=== PATIENT | female | born 1975 | race Caucasian/White ===

== ENCOUNTER → 2016-12-04 | Outpatient (CLI) | payer OTHER ==
[~2016-12-04] MED LIST: LEVO100T7 PO
[2016-12-04 10:23] LABS: BLOOD UREA NITROGEN 13 mg/dl (7-18); BUN/CREATININE RATIO 15.6 (10-20); CALCIUM 8.7 mg/dl (8.5-10.1); CARBON DIOXIDE 27 mmol/L (21-32); CHLORIDE 108 mmol/L (98-107); CHOLESTEROL 223 mg/dl (0-200); CHOLESTEROL/HDL RATIO 4.6; CREATININE 0.85 mg/dl (0.60-1.20); GLUCOSE 88 mg/dl (70-99); HDL CHOLESTEROL 49 mg/dl; LDL CHOLESTEROL CALCULATED 155 mg/dl; POTASSIUM 4.2 mmol/L (3.5-5.1); SODIUM 141 mmol/L (136-145); TRIGLYCERIDES 95 mg/dl (0-150); VERY LOW DENSITY LIPOPROT CALC 19 mg/dl
== END | disposition home or self-care (01) ==
LOC: C.LAB 08:55
PROVIDERS: ATTEND Family Medicine
DX: Z13.6 Encounter for screening for cardiovascular disorders (principal); Z13.1 Encounter for screening for diabetes mellitus; Z51.81 Encounter for therapeutic drug level monitoring

== ENCOUNTER → 2017-07-03 | Outpatient (CLI) | payer OTHER ==
[2017-07-03 13:38] LABS: BASO % 0.2 %; BASO ABS # 0.02 K/uL (0-0.2); EOS % 2.2 %; EOS ABS # 0.22 K/uL (0-0.5); HEMATOCRIT 39.3 % (37-47); HEMOGLOBIN 13.1 g/dL (12.0-16.0); IG# 0.02 K/uL (0.00-0.02); LYMPH % 28.4 %; LYMPH ABS # 2.82 K/uL (1.2-3.4); MEAN CELL VOLUME 88.5 fL (80-100); MEAN CORPUSCULAR HEMOGLOBIN 29.5 pg (25-34); MEAN CORPUSCULAR HGB CONC 33.3 g/dl (32-36); MEAN PLATELET VOLUME 10.5 fL (7.4-10.4); MONO % 6.7 %; MONO ABS # 0.66 K/uL (0.11-0.59); NEUT % 62.3 %; NEUT ABS # 6.18 K/uL (1.4-6.5); PLATELET COUNT 291 K/uL (130-400); RED CELL DISTRIBUTION WIDTH CV 12.6 % (11.5-14.5); RED CELL DISTRIBUTION WIDTH SD 40.2 fL (36.4-46.3); WHITE BLOOD COUNT 9.92 K/uL (4.8-10.8)
[2017-07-03 14:10] LABS: ALBUMIN 3.3 gm/dl (3.4-5.0); ALT/SGPT 20 U/L (12-78); AST/SGOT 21 U/L (15-37); BLOOD UREA NITROGEN 12 mg/dl (7-18); CALCIUM 8.8 mg/dl (8.5-10.1); CARBON DIOXIDE 25 mmol/L (21-32); CREATININE 0.92 mg/dl (0.60-1.20); GLUCOSE 80 mg/dl (70-99); SODIUM 137 mmol/L (136-145)
[2017-07-03 14:22] LABS: ALKALINE PHOSPHATASE 98 U/L (45-117); TOTAL PROTEIN 7.3 gm/dl (6.4-8.2)
== END | disposition home or self-care (01) ==
LOC: C.LAB 11:57
PROVIDERS: ATTEND Family Medicine
DX: R42 Dizziness and giddiness (principal); R29.6 Repeated falls; R26.81 Unsteadiness on feet

== ENCOUNTER 2022-09-29 18:38 | Observation (INO) ==
--- NOTE | 2022-09-29 18:53 | ED Triage Note ---
Date of Service September 29, 2022 History of Present Illness This patient was briefly evaluated while in triage. An abbreviated physical exam was performed. This patient is a 47-year-old Female who presents to the ED for evaluation of shortness of breath and headaches. Hx of DVT at age 17. Arnold her dyspnea started and headaches over the past 2 weeks. No trauma or injury. Physical Exam GENERAL: 47 year old female. In no acute distress. SKIN: No lesions or rashes. HEART: Regular rate and rhythm. LUNGS: Clear to auscultation. NEURO: Alert and oriented. No deficits. MUSCULOSKELETAL: No deformities to inspection of the extremities. PSYCH: Patient is pleasant and answers all questions appropriately. Initial orders for labs and / or imaging were placed and patient was placed in the waiting area until a bed is available. Please see further documentation for the full ED course.
--- NOTE | 2022-09-29 19:15 | XRay Report ---
SINGLE VIEW CHEST CLINICAL HISTORY: Dyspnea FINDINGS: A PA chest radiograph is obtained. No prior studies are available for comparison at the tez e of dictation. The cardiomediastinal silhouette is unremarkable. The lungs and pleural spaces are cl ear. No pneumothorax is seen. The bony thorax is grossly intact. IMPRESSION: No active disease in the chest. ACT 112: Negative or not required by law. Electronically signed by: Bunny Rehman M.D. 09/29/2022 7:14 PM
[2022-09-29 20:22] LABS: Basophils # (auto) 0.04 K/uL (0-0.2); Basophils % (auto) 0.3 %; Eosinophils # (auto) 0.26 K/uL (0-0.50); Eosinophils % (auto) 2.1 %; Hematocrit (blood only) 39.8 % (37.0-47.0); Hemoglobin 13.6 g/dl (12.0-16.0); Immature Granulocytes # (auto) 0.08 K/uL (0.01-0.20); Immature Granulocytes % (auto) 0.6 %; Lymphocytes # (auto) 2.49 K/uL (1.2-3.4); Lymphocytes % (auto) 20.2 %; Mean Corpuscular Hemoglobin 29.6 pg (25.0-34.0); Mean Corpuscular Hgb Conc 34.2 g/dL (32.0-36.0); Mean Corpuscular Volume 86.5 fL (80.0-100.0); Mean Platelet Volume 10.1 fL (9.4-12.4); Monocytes % (auto) 8.1 %; Neutrophils # (auto) 8.46 K/uL (1.40-6.50); Neutrophils % (auto) 68.7 %; Platelet Count 109 K/uL (130-400); RDW Coefficient of Variation 12.6 % (11.5-14.5); RDW Standard Deviation 39.8 fL (36.4-46.3); White Blood Count 12.33 K/ul (4.8-10.8)
[2022-09-29 20:28] LABS: Pregnancy Test, Serum Negative (Negative)
[2022-09-29 20:33] LABS: Bilirubin,Total 0.3 mg/dl (0.2-1.0); Calcium 9.3 mg/dl (8.6-10.3)
[2022-09-29 20:39] LABS: Albumin Globulin Ratio 1.3 (0.9-2); BUN Creatinine Ratio 17.2 (10-20); Creatinine Clr Calc Pharmacy 112.4 ml/min; Est GFR (African American) 83.6 ml/min; Est GFR (Non-African American) 72.2 ml/min; Globulin 3.2 gm/dl (2.5-4.0); Total Protein 7.2 gm/dl (6.0-8.3)
[2022-09-29 20:41] LABS: Troponin I High Sensitivity 4.1 pg/ml (0-14)
[2022-09-29 20:50] LABS: Thyroid Stimulating Hormone 6.44 uIu/ml (0.300-4.500)
[2022-09-29 20:53] LABS: INR 0.9 (0.9-1.1); Partial Thromboplastin Time 27.5 Seconds (21.0-31.0); Prothrombin Time 10.3 Seconds (9.0-12.0)
--- NOTE | 2022-09-29 20:55 | Emergency Department Note ---
History of Present Illness General Chief complaint: Shortness of Breath/Dyspnea Stated complaint: REF BY DOC,SOB,HEADACHE Time Seen by Provider: 09/29/22 20:36 Source: patient, RN notes reviewed and old records reviewed Mode of arrival: ambulatory Limitations: no limitations History of Present Illness This patient is a 47-year-old female who was sent over from her primary care doctor's office for evaluation for possible PE. She has had some shortness of breath since Thursday is mostly dyspnea on exertion. No chest pain no fever no cough no fall or trauma. She does have a remote history of a DVT in her leg about 30 years ago she is on no blood thinners it sounds like it was likely provoked as she said it was deemed to be related to hormones in . She does not have any known clotting disorder. No recent travel no lower extremity pain or swelling. No abdominal pain no nausea vomiting or diarrhea. No blood or melena in her stool. She said that the PA thought she had some wheezes in her right chest. Home Medications Medication Instructions Recorded Confirmed Type levothyroxine 150 mcg tablet 150 mcg PO DAILY 11/02/19 09/29/22 History (Synthroid) sertraline 50 mg tablet 50 mg PO DAILY 09/29/22 09/29/22 History Allergies Allergy/AdvReac Type Severity Reaction Status Date / Time aspirin Allergy Mild Unverified 04/06/09 02:36 Penicillins Allergy Mild Unverified 04/06/09 02:36 Past Med/Surg History Surgical History No pertinent past surgical history Social History Smoking Status: Never smoker Preferred Language: Malay Feels Safe at Home: Yes Immunizations: Past medical historyremote history of PEs she is on Synthroid for hypothyroidism no recent medication change. She has a history of anxiety. Denies any suicidal ideations. Denies cardiac history. Social history does not smoke or drink or use drugs. She is employed in information assurance specialist Review of Systems A total of 10 systems reviewed and were otherwise negative Physical Exam Vital Signs Vital Signs - 24 hr 09/29/22 18:50 09/29/22 20:56 09/29/22 20:56 Temperature 36.8 C Temperature Source Temporal Artery Scan Pulse Rate 100 H 81 Pulse Rate from SpO2 Sensor Pulse Rhythm Regular Respiratory Rate 18 16 Respiratory Effort / Characteristics Non-Labored Respiratory Depth Normal Blood Pressure 159/88 H Blood Pressure Mean 111 Pulse Oximetry 96 95 95 Oxygen Delivery Method Room Air Room Air Room Air Sepsis Recent Fever Within 48 Hours No Sepsis New/Unexplained Change in Mental Status No Sepsis Action Taken by Nursing No Action Required 09/29/22 20:53 09/29/22 20:52 09/29/22 21:00 Temperature Temperature Source Pulse Rate 90 87 78 Pulse Rate from SpO2 Sensor 90 81 Pulse Rhythm Respiratory Rate 19 14 Respiratory Effort / Characteristics Respiratory Depth Blood Pressure 141/93 H Blood Pressure Mean 109 Pulse Oximetry 96 96 Oxygen Delivery Method Room Air Room Air Sepsis Recent Fever Within 48 Hours Sepsis New/Unexplained Change in Mental Status Sepsis Action Taken by Nursing 09/29/22 22:00 09/29/22 22:24 09/29/22 22:30 Temperature Temperature Source Pulse Rate 82 100 H 85 Pulse Rate from SpO2 Sensor 82 85 Pulse Rhythm Respiratory Rate 13 17 Respiratory Effort / Characteristics Respiratory Depth Blood Pressure 130/88 Blood Pressure Mean 102 Pulse Oximetry 94 93 93 Oxygen Delivery Method Room Air Room Air Room Air Sepsis Recent Fever Within 48 Hours Sepsis New/Unexplained Change in Mental Status Sepsis Action Taken by Nursing 09/29/22 23:00 Temperature Temperature Source Pulse Rate 87 Pulse Rate from SpO2 Sensor 87 Pulse Rhythm Respiratory Rate 15 Respiratory Effort / Characteristics Respiratory Depth Blood Pressure 119/87 Blood Pressure Mean 97 Pulse Oximetry 95 Oxygen Delivery Method Room Air Sepsis Recent Fever Within 48 Hours Sepsis New/Unexplained Change in Mental Status Sepsis Action Taken by Nursing General: Well developed well nourished middle-age female who appears in no acute distress, breathing comfortably on room air. Normal speech HEENT: Normal cephalic atraumatic. Pupils are equal round and reactive to light. Extraocular movements are intact. Oropharynx is pink with moist mucous membranes. No swelling of the mouth lips or tongue. Neck: Supple with a midline trachea. No meningeal signs or stiffness, no JVD or bruits. No Stridor. Chest: Clear to auscultation bilaterally with exception of some scattered wheezes in the right base. No increased work of breathing. Heart: Regular rate and rhythm without murmurs or gallops. Abdomen: Soft nontender, nondistended without rebound guarding or rigidity. Extremities: No cyanosis clubbing or edema. No calf tenderness or assymetry Spine/Back. Non tender to palpation. No CVA tenderness Skin: Good turgor without rashes. Neurologic exam: Cranial nerves two through 12 are intact. Motor and sensation are intact and symmetrical throughout. Course Administered Medications Discontinued Medications Ioversol (Ioversol 350 Mg 125ml Prefilled Syringe) 118 ml IV ONCE ONE Stop: 09/29/22 22:20 Last Admin: 09/29/22 22:19 Dose: 118 ml Documented By: MAMIE Medical Decision Making Differential Diagnosis Pneumonia, reactive airway disease, PE, pneumothorax, acute coronary syndrome, arrhythmia Medical Records Attestation: I reviewed the patient's medical records. Home Medications Current Medication List: was personally reviewed by me Laboratory Data Attestation: I reviewed the patient's lab results. 09/29/22 20:00 09/29/22 20:00 Lab Results 09/29/22 09/29/22 09/29/22 Range/Units 20:00 20:00 20:00 WBC 12.33 H (4.8-10.8) K/ul RBC 4.60 (4.20-5.40) M/uL Hgb 13.6 (12.0-16.0) g/dl Hct 39.8 (37.0-47.0) % MCV 86.5 (80.0-100.0) fL MCH 29.6 (25.0-34.0) pg MCHC 34.2 (32.0-36.0) g/dL RDW Std Deviation 39.8 (36.4-46.3) fL RDW Coeff of Mayela 12.6 (11.5-14.5) % Plt Count 109 L (130-400) K/uL MPV 10.1 (9.4-12.4) fL Immature Gran % (Auto) 0.6 % Neut % (Auto) 68.7 % Lymph % (Auto) 20.2 % Mayes % (Auto) 8.1 % Eos % (Auto) 2.1 % Baso % (Auto) 0.3 % Neut # (Auto) 8.46 H (1.40-6.50) K/uL Lymph # (Auto) 2.49 (1.2-3.4) K/uL Mayes # (Auto) 1.00 H (0.11-0.59) K/uL Eos # (Auto) 0.26 (0-0.50) K/uL Baso # (Auto) 0.04 (0-0.2) K/uL Immature Gran # (Auto) 0.08 (0.01-0.20) K/uL PT 10.3 (9.0-12.0) Seconds INR 0.9 (0.9-1.1) APTT 27.5 (21.0-31.0) Seconds PTT Ratio 1.0 D-Dimer 5840 H* (0-500) ug/L FEU Sodium 137 (136-145) mmol/L Potassium 4.0 (3.5-5.1) mmol/L Chloride 105 (98-107) mmol/L Carbon Dioxide 23 (21-32) mmol/L Anion Gap 9 (3-11) BUN 16 (6-23) mg/dl Creatinine 0.93 (0.6-1.2) mg/dl Est Cr Clr Drug Dosing 112.4 ml/min Est GFR ( Amer) 83.6 ml/min Est GFR (Non-Af Amer) 72.2 ml/min BUN/Creatinine Ratio 17.2 (10-20) Glucose 93 (70-99(Fasting)) mg/dl Calcium 9.3 (8.6-10.3) mg/dl Total Bilirubin 0.3 (0.2-1.0) mg/dl AST 17 (13-39) U/L ALT 12 (7-52) U/L Alkaline Phosphatase 85 (34-104) U/L Troponin I High Sens 4.1 (0-14) pg/ml Total Protein 7.2 (6.0-8.3) gm/dl Albumin 4.0 (3.4-5.0) gm/dl Globulin 3.2 (2.5-4.0) gm/dl Albumin/Globulin Ratio 1.3 (0.9-2) TSH (0.300-4.500) uIu/ml Free T4 (0.61-1.60) ng/dl HCG, Qual (Negative) SARS-CoV-2, RNA, NAAT (NEGATIVE) 09/29/22 09/29/22 09/29/22 Range/Units 20:00 20:00 20:54 WBC (4.8-10.8) K/ul RBC (4.20-5.40) M/uL Hgb (12.0-16.0) g/dl Hct (37.0-47.0) % MCV (80.0-100.0) fL MCH (25.0-34.0) pg MCHC (32.0-36.0) g/dL RDW Std Deviation (36.4-46.3) fL RDW Coeff of Mayela (11.5-14.5) % Plt Count (130-400) K/uL MPV (9.4-12.4) fL Immature Gran % (Auto) % Neut % (Auto) % Lymph % (Auto) % Mayes % (Auto) % Eos % (Auto) % Baso % (Auto) % Neut # (Auto) (1.40-6.50) K/uL Lymph # (Auto) (1.2-3.4) K/uL Mayes # (Auto) (0.11-0.59) K/uL Eos # (Auto) (0-0.50) K/uL Baso # (Auto) (0-0.2) K/uL Immature Gran # (Auto) (0.01-0.20) K/uL PT (9.0-12.0) Seconds INR (0.9-1.1) APTT (21.0-31.0) Seconds PTT Ratio D-Dimer (0-500) ug/L FEU Sodium (136-145) mmol/L Potassium (3.5-5.1) mmol/L Chloride (98-107) mmol/L Carbon Dioxide (21-32) mmol/L Anion Gap (3-11) BUN (6-23) mg/dl Creatinine (0.6-1.2) mg/dl Est Cr Clr Drug Dosing ml/min Est GFR ( Amer) ml/min Est GFR (Non-Af Amer) ml/min BUN/Creatinine Ratio (10-20) Glucose (70-99(Fasting)) mg/dl Calcium (8.6-10.3) mg/dl Total Bilirubin (0.2-1.0) mg/dl AST (13-39) U/L ALT (7-52) U/L Alkaline Phosphatase (34-104) U/L Troponin I High Sens (0-14) pg/ml Total Protein (6.0-8.3) gm/dl Albumin (3.4-5.0) gm/dl Globulin (2.5-4.0) gm/dl Albumin/Globulin Ratio (0.9-2) TSH 6.440 H (0.300-4.500) uIu/ml Free T4 0.85 (0.61-1.60) ng/dl HCG, Qual Negative (Negative) SARS-CoV-2, RNA, NAAT NEGATIVE (NEGATIVE) Imaging Data Attestation: I personally reviewed and interpreted this imaging study as follows: My Impression: Chest x-rayno acute infiltrate, failure, pneumothorax seen CT angio/PEthere are some filling defects in the lower lobes bilaterally. No central clot seen Radiologist's Impression: Chest X-Ray 09/29/22 18:54 SINGLE VIEW CHEST CLINICAL HISTORY: Dyspnea FINDINGS: A PA chest radiograph is obtained. No prior studies are available for comparison at the time of dictation. The cardiomediastinal silhouette is unremarkable. The lungs and pleural spaces are clear. No pneumothorax is seen. The bony thorax is grossly intact. IMPRESSION: No active disease in the chest. ACT 112: Negative or not required by law. Electronically signed by: Bunny Rehman M.D. 09/29/2022 7:14 PM Chest CTA 09/29/22 20:48 CR Exam(s): CTA CHEST IV Amt: 118 ml optiray 350 EXAM: CT Angiography Chest With Intravenous Contrast CLINICAL HISTORY: Reason for exam: PE. TECHNIQUE: Axial computed tomographic angiography images of the chest with intravenous contrast. Automated exposure control was utilized for the study. A dose lowering technique was utilized adhering to the principles of ALARA. MIP reconstructed images were created and reviewed. COMPARISON: No relevant prior studies available. FINDINGS: Pulmonary arteries: Positive for acute pulmonary emboli in the LEFT lower lobe segmental and subsegmental branches, as well as RIGHT lower lobe subsegmental branches. Aorta: No acute findings. No thoracic aortic aneurysm. Lungs: Unremarkable. No mass. No consolidation. Pleural space: Unremarkable. No significant effusion. No pneumothorax. Heart: Unremarkable. No significant pericardial effusion. No CT evidence of RIGHT heart strain. Bones/joints: No acute fracture. No dislocation. Soft tissues: Unremarkable. Lymph nodes: Unremarkable. No enlarged lymph nodes. IMPRESSION: Positive for bilateral acute pulmonary emboli , as described. Communications: Call Doctor Other Electronically signed by: Javier Ricardo MD 09/29/22 22:45 PM ECG Data Attestation: I personally reviewed and interpreted this ECG as follows: Indication: + chest pain Rate (beats per minute): 103 Rhythm: + sinus tachycardia ECG Intervals/blocks: + Normal QRS, + Normal QT and + Normal VA ECG [place]: + Normal ECG ST segments: + Normal ST segments ECG Findings: no PACs or no PVCs Comparison ECG Date: from (09/29/22) Change: no significant change MDM Narrative This patient comes in as described above. She was placed in room A11. she is here for shortness of breath for the last several days its been mostly had dyspnea on exertion she does have some scattered wheezes in the right base she is afebrile and not hypoxemic she appears well. EKG does not suggest acute coronary syndrome arrhythmia. Chest x-ray was unremarkable. She has no significant electrolyte or metabolic abnormality. I did discuss the risk and benefits of doing a CT angio with IV contrast for PE and other pathology she does freely consent and this was obtained. The radiologist called me and told me she has bilateral pulmonary emboli. The patient has remained stable. Her D- dimer was significantly elevated at greater than 5000. I do think she needs to be anticoagulated and admitted/observed for further inpatient treatment and evaluation. I have consulted Dr. Mcneal to discuss the case and also discuss anticoagulation. He says that he will see the patient and determine which 1 he wants her on as an inpatient. Continuous cardiac monitoring: Orders placed in EMR for continuous cardiac monitoring: Upon my evaluation patient noted to be in normal sinus rhythm rate 85 Impression & Plan Bilateral pulmonary embolism, Shortness of breath, History of deep vein thrombosis, Wheezes, Lab test negative for COVID-19 virus Discharge Plan Visit Data Chief Complaint: Shortness of Breath/Dyspnea Stated Complaint: REF BY DOC,SOB,HEADACHE ED Provider: Morgan Bustamante Discharge Problem: Bilateral pulmonary embolism, Shortness of breath, History of deep vein thrombosis, Wheezes, Lab test negative for COVID-19 virus Forms Stand Alone Forms: My [facility] Prescriptions Prescriptions: No Action levothyroxine [Synthroid] 150 mcg tablet 150 mcg PO DAILY sertraline 50 mg tablet 50 mg PO DAILY Referrals Referrals: PCP,NO [Primary Care Provider] -
[2022-09-29 20:59] LABS: D Dimer 5840 ug/L FEU (0-500)
[2022-09-29 21:40] LABS: T4 Free Thyroxine 0.85 ng/dl (0.61-1.60)
[2022-09-29] MEDS ORDERED: IOVERSOL 350 MG 125mL Prefilled Syringe IV ONE (22:19)
--- NOTE | 2022-09-29 22:46 | CT Scan Report ---
Exam(s): CTA CHEST IV Amt: 118 ml optiray 350 EXAM: CT Angiography Chest With Intravenous Contrast CLINICAL HISTORY: Reason for exam: PE. TECHNIQUE: Axial computed tomographic angiography images of the chest with intravenous contrast. Automated exposure control was utilized for the study. A dose lowering technique was utilized adhering to the principles of ALARA. MIP reconstructed images were created and reviewed. COMPARISON: No relevant prior studies available. FINDINGS: Pulmonary arteries: Positive for acute pulmonary emboli in the LEFT lower lobe segmental and subsegmental branches, as well as RIGHT lower lobe subsegmental branches. Aorta: No acute findings. No thoracic aortic aneurysm. Lungs: Unremarkable. No mass. No consolidation. Pleural space: Unremarkable. No significant effusion. No pneumothorax. Heart: Unremarkable. No significant pericardial effusion. No CT evidence of RIGHT heart strain. Bones/joints: No acute fracture. No dislocation. Soft tissues: Unremarkable. Lymph nodes: Unremarkable. No enlarged lymph nodes. IMPRESSION: Positive for bilateral acute pulmonary emboli , as described. Communications: Call Doctor Other Electronically signed by: Javier Ricardo MD 09/29/22 22:45 PM
[2022-09-29] MEDS ORDERED: SODIUM CHLORIDE 0.9% 1000ML 1,000 ML IV ONE (23:54)
--- NOTE | 2022-09-30 00:45 | History & Physical Report ---
Date of Service September 30, 2022 Assessment & Plan (1) Bilateral pulmonary embolism: Plan: Unprovoked event Past history DVT attributed to OCP pill status post Coumadin Rule out recurrent LE clot as source Possible hypercoagulable state hypothyroidism, TSH slightly elevated mood disorder, stable Medical telemetry Hypercoagulable work-up before weight-based Lovenox Defer discussion regarding home anticoagulation agent between patient and AM provider. Patient expressed interest in Eliquis. LE venous Dopplers rule out DVT Outpatient Hematology consult Re: Unprovoked PE, past history DVT DVT prophylaxis. Lovenox Full code Text document was generated using [employer] voice recognition software. It may contain grammatical or spelling errors. Kindly contact undersigned for clarification of any documentation item in question. History of Present Illness Chief Complaint: Shortness of breath Primary Care Provider: Myron Green (Patient needs new PCP at the practice after Dr. Maxx naidu.) History obtained from patient and records. Medical history significant for past history DVT status post Coumadin, hypothyroidism, mood disorder. Patient remembers developing a lower extremity on her leg about 30 years ago attributed to oral contraceptive pill intake. Completed Coumadin course outpatient. Few days history of shortness of breath mostly on exertion without chest pain. No recent periods of immobilization/prolonged travel. No chest pain. No unusual weight loss. Intermittent dull headache symptoms for about 2 weeks. Patient directed to ER after being seen at PCPs office yesterday. Medical History as above Surgical History : None Family History : Superficial blood clots Personal/Social history : Non-smoker, occasional EtOH intake, IT work Allergies Allergy/AdvReac Type Severity Reaction Status Date / Time aspirin Allergy Mild Unverified 04/06/09 02:36 Penicillins Allergy Mild Unverified 04/06/09 02:36 Home Medications Medication Instructions Recorded Confirmed Type levothyroxine 150 mcg tablet 150 mcg PO DAILY 11/02/19 09/29/22 History (Synthroid) sertraline 50 mg tablet 50 mg PO DAILY 09/29/22 09/29/22 History Past Med/Surg History Surgical History No pertinent past surgical history Social History Smoking Status: Never smoker Hx Alcohol Use: Yes Hx Substance Use: No Preferred Language: Bruneian Communication Ability: Effective Rehabilitation Services Coordinator Required: No Beliefs That Will Affect Care: None Current Living Situation: Alone Other Information That Helps Us Care for You: No Feels Safe at Home: Yes Safety Concerns: Feels Safe At This Time Assistive Devices: Glasses Review of Systems Review of Systems: As per HPI, all other systems reviewed and negative Physical Exam 2 Physical Exam: GENERAL: Comfortable, pleasant, morbidly obese, no respiratory distress SKIN: Normal color, warm HEENT: Halls palpebral conjunctivae, no ptosis, moist buccal mucosa NECK : Supple, short neck, no tenderness CHEST : CTA, no tenderness HEART : RRR, no obvious murmurs ABDOMEN: Some distention, nontender EXTREMITIES : Bilateral LE swelling (R > L), no LE tenderness, no other conspicuous deformities noted NEUROLOGIC : Coherent, no facial asymmetry, no other gross focality Results & Data Results & Data Vital Signs (Past 12 Hours) Vital Signs Temp Pulse Resp BP Pulse Ox O2 Del Method 09/30/22 00:06 125/95 09/29/22 23:30 79 13 94 Room Air 09/29/22 23:00 87 15 119/87 95 Room Air 09/29/22 22:30 85 17 93 Room Air 09/29/22 22:24 100 H 130/88 93 Room Air 09/29/22 22:00 82 13 94 Room Air 09/29/22 21:00 78 14 96 Room Air 09/29/22 20:52 87 09/29/22 20:53 90 19 141/93 H 96 Room Air 09/29/22 20:56 81 16 95 Room Air 09/29/22 20:56 95 Room Air 09/29/22 18:50 36.8 C 100 H 18 159/88 H 96 Room Air Laboratory Results Laboratory Results WBC 12.33 K/ul (4.8-10.8) H 09/29/22 20:00 RBC 4.60 M/uL (4.20-5.40) 09/29/22 20:00 Hgb 13.6 g/dl (12.0-16.0) 09/29/22 20:00 Hct 39.8 % (37.0-47.0) 09/29/22 20:00 MCV 86.5 fL (80.0-100.0) 09/29/22 20:00 MCH 29.6 pg (25.0-34.0) 09/29/22 20:00 MCHC 34.2 g/dL (32.0-36.0) 09/29/22 20:00 RDW Std Deviation 39.8 fL (36.4-46.3) 09/29/22 20:00 RDW Coeff of Mayela 12.6 % (11.5-14.5) 09/29/22 20:00 Plt Count 109 K/uL (130-400) L 09/29/22 20:00 MPV 10.1 fL (9.4-12.4) 09/29/22 20:00 Immature Gran % (Auto) 0.6 % 09/29/22 20:00 Neut % (Auto) 68.7 % 09/29/22 20:00 Lymph % (Auto) 20.2 % 09/29/22 20:00 [place] % (Auto) 8.1 % 09/29/22 20:00 Eos % (Auto) 2.1 % 09/29/22 20:00 Baso % (Auto) 0.3 % 09/29/22 20:00 Neut # (Auto) 8.46 K/uL (1.40-6.50) H 09/29/22 20:00 Lymph # (Auto) 2.49 K/uL (1.2-3.4) 09/29/22 20:00 [place] # (Auto) 1.00 K/uL (0.11-0.59) H 09/29/22 20:00 Eos # (Auto) 0.26 K/uL (0-0.50) 09/29/22 20:00 Baso # (Auto) 0.04 K/uL (0-0.2) 09/29/22 20:00 Immature Gran # (Auto) 0.08 K/uL (0.01-0.20) 09/29/22 20:00 PT 10.3 Seconds (9.0-12.0) 09/29/22 20:00 INR 0.9 (0.9-1.1) 09/29/22 20:00 APTT 27.5 Seconds (21.0-31.0) 09/29/22 20:00 PTT Ratio 1.0 09/29/22 20:00 D-Dimer 5840 ug/L FEU (0-500) H* 09/29/22 20:00 Sodium 137 mmol/L (136-145) 09/29/22 20:00 Potassium 4.0 mmol/L (3.5-5.1) 09/29/22 20:00 Chloride 105 mmol/L (98-107) 09/29/22 20:00 Carbon Dioxide 23 mmol/L (21-32) 09/29/22 20:00 Anion Gap 9 (3-11) 09/29/22 20:00 BUN 16 mg/dl (6-23) 09/29/22 20:00 Creatinine 0.93 mg/dl (0.6-1.2) 09/29/22 20:00 Est Cr Clr Drug Dosing 112.4 ml/min 09/29/22 20:00 Est GFR ( Amer) 83.6 ml/min 09/29/22 20:00 Est GFR (Non-Af Amer) 72.2 ml/min 09/29/22 20:00 BUN/Creatinine Ratio 17.2 (10-20) 09/29/22 20:00 Glucose 93 mg/dl (70-99(Fasting)) 09/29/22 20:00 Calcium 9.3 mg/dl (8.6-10.3) 09/29/22 20:00 Total Bilirubin 0.3 mg/dl (0.2-1.0) 09/29/22 20:00 AST 17 U/L (13-39) 09/29/22 20:00 ALT 12 U/L (7-52) 09/29/22 20:00 Alkaline Phosphatase 85 U/L (34-104) 09/29/22 20:00 Troponin I High Sens 4.1 pg/ml (0-14) 09/29/22 20:00 Total Protein 7.2 gm/dl (6.0-8.3) 09/29/22 20:00 Albumin 4.0 gm/dl (3.4-5.0) 09/29/22 20:00 Globulin 3.2 gm/dl (2.5-4.0) 09/29/22 20:00 Albumin/Globulin Ratio 1.3 (0.9-2) 09/29/22 20:00 TSH 6.440 uIu/ml (0.300-4.500) H 09/29/22 20:00 Free T4 0.85 ng/dl (0.61-1.60) 09/29/22 20:00 HCG, Qual Negative (Negative) 09/29/22 20:00 SARS-CoV-2, RNA, NAAT NEGATIVE (NEGATIVE) 09/29/22 20:54 Impressions Chest X-Ray 09/29/22 18:54 SINGLE VIEW CHEST CLINICAL HISTORY: Dyspnea FINDINGS: A PA chest radiograph is obtained. No prior studies are available for comparison at the time of dictation. The cardiomediastinal silhouette is unremarkable. The lungs and pleural spaces are clear. No pneumothorax is seen. The bony thorax is grossly intact. IMPRESSION: No active disease in the chest. ACT 112: Negative or not required by law. Electronically signed by: Bunny Rehman M.D. 09/29/2022 7:14 PM Chest CTA 09/29/22 20:48 CR Exam(s): CTA CHEST IV Amt: 118 ml optiray 350 EXAM: CT Angiography Chest With Intravenous Contrast CLINICAL HISTORY: Reason for exam: PE. TECHNIQUE: Axial computed tomographic angiography images of the chest with intravenous contrast. Automated exposure control was utilized for the study. A dose lowering technique was utilized adhering to the principles of ALARA. MIP reconstructed images were created and reviewed. COMPARISON: No relevant prior studies available. FINDINGS: Pulmonary arteries: Positive for acute pulmonary emboli in the LEFT lower lobe segmental and subsegmental branches, as well as RIGHT lower lobe subsegmental branches. Aorta: No acute findings. No thoracic aortic aneurysm. Lungs: Unremarkable. No mass. No consolidation. Pleural space: Unremarkable. No significant effusion. No pneumothorax. Heart: Unremarkable. No significant pericardial effusion. No CT evidence of RIGHT heart strain. Bones/joints: No acute fracture. No dislocation. Soft tissues: Unremarkable. Lymph nodes: Unremarkable. No enlarged lymph nodes. IMPRESSION: Positive for bilateral acute pulmonary emboli , as described. Communications: Call Doctor Other Electronically signed by: Javier Ricardo MD 09/29/22 22:45 PM Diagnostic Findings EKG as per my interpretation : Rate 105, sinus tachycardia, LAD, LAFB, T wave abnormalities inferior leads
[2022-09-30] MEDS ORDERED: PROMETHAZINE HCL 12.5 MG in SODIUM CHLORIDE 0.9% 50 ML IV PRN (01:31)
[2022-09-30] MEDS ORDERED: LORazepam 0.5 MG TAB PO PRN (01:31)
[2022-09-30] MEDS ORDERED: oxyCODONE HCL IR 5 MG TAB (IMMEDIATE RELEASE) PO PRN (01:31)
--- NOTE | 2022-09-30 02:16 | CT Scan Report ---
Exam(s): CT HEAD Without Contrast EXAM: CT Head Without Intravenous Contrast CLINICAL HISTORY: Reason for exam: wolfe. TECHNIQUE: Axial computed tomography images of the head/brain without intravenous contrast. Automated exposure control was utilized for the study. A dose lowering technique was utilized adhering to the principles of ALARA. COMPARISON: No relevant prior studies available. FINDINGS: Brain: Unremarkable. No hemorrhage. No significant white matter disease. No edema. Ventricles: Unremarkable. No ventriculomegaly. Bones/joints: Unremarkable. No acute fracture. Soft tissues: Unremarkable. Sinuses: Unremarkable as visualized. No acute sinusitis. Mastoid air cells: Unremarkable as visualized. No mastoid effusion. IMPRESSION: Normal head/brain CT. Electronically signed by: Mason Kenny M.D. 09/30/22 02:15 AM
[2022-09-30 03:21] LABS: BUN Creatinine Ratio 18.1 (10-20); Calcium 8.7 mg/dl (8.6-10.3); Est GFR (Non-African American) 82.8 ml/min; Potassium 3.5 mmol/L (3.5-5.1)
[2022-09-30 03:35] LABS: Basophils # (auto) 0.04 K/uL (0-0.2); Basophils % (auto) 0.4 %; Eosinophils # (auto) 0.28 K/uL (0-0.50); Eosinophils % (auto) 2.5 %; Hemoglobin 12.3 g/dl (12.0-16.0); Immature Granulocytes # (auto) 0.08 K/uL (0.01-0.20); Immature Granulocytes % (auto) 0.7 %; Lymphocytes # (auto) 2.69 K/uL (1.2-3.4); Lymphocytes % (auto) 24.3 %; Mean Corpuscular Hemoglobin 29.7 pg (25.0-34.0); Mean Corpuscular Hgb Conc 34.2 g/dL (32.0-36.0); Mean Platelet Volume 10.5 fL (9.4-12.4); Monocytes # (auto) 0.92 K/uL (0.11-0.59); Monocytes % (auto) 8.3 %; Neutrophils # (auto) 7.07 K/uL (1.40-6.50); Neutrophils % (auto) 63.8 %; Platelet Count 75 K/uL (130-400); Platelet Estimate Decreased (Normal); RBC Morphology Unremarkable; RDW Coefficient of Variation 12.5 % (11.5-14.5); RDW Standard Deviation 39.6 fL (36.4-46.3); Red Blood Count 4.14 M/uL (4.20-5.40); White Blood Count 11.08 K/ul (4.8-10.8)
[2022-09-30] MEDS: ENOXAPARIN 150 MG/ML SYR SQ SCH ×2 (05:49→16:26)
--- NOTE | 2022-09-30 06:24 | Ultrasound Report ---
BILATERAL LOWER EXTREMITY VENOUS DOPPLER CLINICAL HISTORY: leg swelling COMPARISON STUDY: No previous studies for comparison. TECHNIQUE: Sonography of the deep venous system of the bilateral lower extremities was performed. Co mpression and augmentation were evaluated. FINDINGS: The bilateral common femoral, superficial femoral and popliteal veins were compressible. A ugmentation was normal. Flow was shown within the deep calf vessels. There is a 5.8 x 1.9 x 1.2 cm ri ght popliteal fluid collection. IMPRESSION: 1. No evidence of deep venous thrombus within the bilateral lower extremities. 2. 5.8 x 1.9 x 1.2 cm right popliteal cyst. ACT 112: Negative or not required by law. Electronically signed by: Gen Choi M.D. 09/30/2022 6:21 AM
[2022-09-30] MEDS: ACETAMINOPHEN 325 MG TAB PO PRN (07:05)
[2022-09-30] MEDS: LEVOTHYROXINE SODIUM 150 MCG TABLET PO SCH (07:05)
[2022-09-30] MEDS: SERTRALINE HCL 50 MG TABLET PO SCH (08:14)
--- NOTE | 2022-09-30 18:13 | Hospitalist Progress Note ---
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 She was started on coumadin at that time Current bilateral PE is unprovoked Hypercoagulable workup was ordered by admitting physician and appears to have been sent before Ms Khalil got her first dose of lovenox She will remain on therapeutic lovenox, when ready for discharge will need to investigate insurance coverage of NOAC. I did give her a coupon for 30 day supply of Xarelto. But will need to confirm that she has access to her medicines prior to discharge LE u/s negative for DVT, shows left popliteal cyst which I informed patient of Patient will need hematology referral after discharge for follow up of her hypercoagulable workup started here She will most likely need life long anticoagulation considering this is her second VTE but this will be deferred to Hematology Plan hypothyroidism continue sytnhroid mood disorder continue sertraline Disposition--Likely discharge home tomorrow if CALDWELL has improved Admission and Anticipated Discharge Date Admission Date: September 30, 2022 Subjective Doing well overall. O2sat 91% on RA at rest and remained above 90% with ambulation although patient reported CALDWELL No events noted on telemetry Review of Systems Review of Systems: as above Physical Exam Physical Exam: Appears well, no acute distress, non toxic Respiratory: Breathing comfortably on room air, no wheezing/rhonchi Cardiovascular: Regular rate and rhythm, no murmurs/rubs Gastrointestinal (Abdomen): soft, non tender Musculoskeletal: No edema Neurologic: awake, alert, spontaneously moving extremities Results & Data Results & Data Vital Signs (Past 12 Hours) Vital Signs Temp Pulse Pulse Pulse Pulse Pulse Pulse 09/30/22 15:08 36.6 C 70 09/30/22 08:00 89 09/30/22 15:00 74 09/30/22 13:05 120 H 87 95 H 09/30/22 11:48 36.5 C 87 09/30/22 10:27 09/30/22 10:04 36.4 C L 81 09/30/22 09:32 75 09/30/22 07:07 36.7 C 68 09/30/22 06:58 09/30/22 06:35 60 Resp Resp Resp Resp BP BP Pulse Ox 09/30/22 15:08 16 138/74 93 08/01/23 08:00 09/30/22 15:00 09/30/22 13:05 24 22 20 09/30/22 11:48 16 133/67 92 09/30/22 10:27 09/30/22 10:04 20 116/84 93 09/30/22 09:32 17 118/85 95 09/30/22 07:07 17 138/84 96 09/30/22 06:58 09/30/22 06:35 16 131/71 96 Pulse Ox Pulse Ox Pulse Ox Pulse Ox O2 Del Method O2 Del Method 09/30/22 15:08 Room Air 09/30/22 08:00 09/30/22 15:00 09/30/22 13:05 90 93 95 Room Air 09/30/22 11:48 Room Air 09/30/22 10:27 Room Air 09/30/22 10:04 09/30/22 09:32 Room Air 09/30/22 07:07 Room Air 09/30/22 06:58 96 Room Air 09/30/22 06:35 Room Air
[2022-10-01] MEDS: ENOXAPARIN 150 MG/ML SYR SQ SCH (05:51)
[2022-10-01] MEDS: LEVOTHYROXINE SODIUM 150 MCG TABLET PO SCH (05:52)
[2022-10-01] MEDS: ACETAMINOPHEN 325 MG TAB PO PRN (07:31)
[2022-10-01] MEDS: SERTRALINE HCL 50 MG TABLET PO SCH (07:31)
--- NOTE | 2022-10-01 13:02 | Hospitalist Progress Note ---
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 She was started on coumadin at that time Current bilateral PE is unprovoked Hypercoagulable workup was ordered by admitting physician and appears to have been sent before Ms Khalil got her first dose of lovenox She will remain on therapeutic lovenox, when ready for discharge will need to investigate insurance coverage of NOAC. I did give her a coupon for 30 day supply of Xarelto. 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 Plan hypothyroidism continue sytnhroid mood disorder continue sertraline Disposition--Likely discharge home tomorrow if CALDWELL has improved Admission and Anticipated Discharge Date Admission Date: September 30, 2022 Subjective 10/01/2022 The patient was seen and examined in medical telemetry unit She has been feeling much better and denies any shortness of breath with exertion No chest pain and her palpitation Denies any other significant symptoms Review of Systems Review of Systems: All systems reviewed and are unremarkable except as noted below Physical Exam Physical Exam: Sitting on a chair without any acute distress Constitutional: well developed, well nourished and + obese; not ill appearing Eyes: PERRL, conjunctivae normal, anicteric sclerae ENMT: external ear and nose normal, oropharynx normal Neck: trachea midline, no thyromegaly Respiratory: no respiratory distress Auscultation: lungs clear to auscultation bilaterally Cardiovascular: Rate/Rhythm: regular rate and regular rhythm; not tachycardic Heart Sounds: normal S1 and normal S2; no murmur Extremities: + edema (Trace edema bilaterally) Gastrointestinal (Abdomen): Inspection/Auscultation: normal bowel sounds; abdomen not distended Percussion/Palpation: abdomen soft; abdomen nontender Musculoskeletal: No acute arthritis involving any joint Neurologic: normal touch/pain/proprioception and moves all extremities; no focal motor deficits Psychiatric: A+Ox3, euthymic affect Lymphatic: no cervical or axillary lymphadenopathy Results & Data Results & Data Vital Signs (Past 12 Hours) Vital Signs Temp Pulse Pulse Resp BP Pulse Ox O2 Del Method 10/01/22 11:35 36.8 C 86 16 131/91 94 Room Air 10/01/22 07:19 36.8 C 65 18 129/83 93 Room Air 10/01/22 05:59 69 10/01/22 02:48 36.3 C L 76 16 132/83 93 Room Air Medications Administered Current Inpatient Medications Acetaminophen (Acetaminophen 325 Mg Tab) 650 mg PO Q6H PRN PRN Reason: Fever/Pain Stop: 10/30/22 01:30 Last Admin: 10/01/22 07:31 Dose: 650 mg Promethazine HCl 12.5 mg/ (Sodium Chloride) 50.5 mls @ 202 mls/hr IV Q6H PRN PRN Reason: Nausea And Vomiting Stop: 10/30/22 01:30 Levothyroxine Sodium (Levothyroxine Sodium 150 Mcg Tablet) 150 mcg PO DAILYBB NILE Stop: 10/30/22 06:29 Last Admin: 10/01/22 05:52 Dose: 150 mcg Lorazepam (Lorazepam 0.5 Mg Tab) 0.5 mg PO TID PRN PRN Reason: Anxiety Stop: 10/30/22 01:30 Oxycodone HCl (Oxycodone Hcl Ir 5 Mg Tab (Immediate Release)) 5 mg PO Q4H PRN PRN Reason: Pain Stop: 10/14/22 01:30 Rivaroxaban (Rivaroxaban 15 Mg Tab) 15 mg PO BID NILE Stop: 10/22/22 20:59 Sertraline HCl (Sertraline Hcl 50 Mg Tablet) 50 mg PO DAILY NILE Stop: 10/30/22 08:59 Last Admin: 10/01/22 07:31 Dose: 50 mg
[2022-10-01] MEDS ORDERED: RIVAROXABAN 15 MG TAB PO SCH (21:00)
--- NOTE | 2022-10-01 23:04 | Electrocardiogram Report ---
Test Reason : Blood Pressure : / mmHG Vent. Rate : 103 BPM Atrial Rate : 103 BPM P-R Int : 156 ms QRS Dur : 080 ms QT Int : 330 ms P-R-T Axes : 017 -08 -07 degrees QTc Int : 432 ms Sinus tachycardia Anterior infarct , age undetermined Abnormal ECG No previous ECGs available Confirmed by Jimbo Pink ([id number]) on 10/01/2022 11:04:03 PM Referred By: Edy Rivero Confirmed By:Jimbo Pink
--- NOTE | 2022-10-02 07:58 | Discharge Summary ---
Date of Service October 01, 2022 Admission HPI Per Admitting Provider History obtained from patient and records. Medical history significant for past history DVT status post Coumadin, hypothyroidism, mood disorder. Patient remembers developing a lower extremity on her leg about 30 years ago attributed to oral contraceptive pill intake. Completed Coumadin course outpatient. Few days history of shortness of breath mostly on exertion without chest pain. No recent periods of immobilization/prolonged travel. No chest pain. No unusual weight loss. Intermittent dull headache symptoms for about 2 weeks. Patient directed to ER after being seen at PCPs office yesterday. Medical History as above Surgical History : None Family History : Superficial blood clots Personal/Social history : Non-smoker, occasional EtOH intake, IT work Admission Exam Per Admitting Provider Physical Exam: GENERAL: Comfortable, pleasant, morbidly obese, no respiratory distress SKIN: Normal color, warm HEENT: [place] palpebral conjunctivae, no ptosis, moist buccal mucosa NECK : Supple, short neck, no tenderness CHEST : CTA, no tenderness HEART : RRR, no obvious murmurs ABDOMEN: Some distention, nontender EXTREMITIES : Bilateral LE swelling (R > L), no LE tenderness, no other conspicuous deformities noted NEUROLOGIC : Coherent, no facial asymmetry, no other gross focality Principal Diagnosis Bilateral pulmonary embolism Discharge Exam Sitting on a chair without any acute distress Constitutional well developed, well nourished and + obese; not ill appearing Eyes PERRL, conjunctivae normal, anicteric sclerae ENMT external ear and nose normal, oropharynx normal Neck trachea midline, no thyromegaly Respiratory no respiratory distress Auscultation: lungs clear to auscultation bilaterally Cardiovascular Rate/Rhythm: regular rate and regular rhythm; not tachycardic Heart Sounds: normal S1 and normal S2; no murmur Extremities: + edema (Trace edema bilaterally) Gastrointestinal (Abdomen) Inspection/Auscultation: normal bowel sounds; abdomen not distended Percussion/Palpation: abdomen soft; abdomen nontender Neurologic normal touch/pain/proprioception and moves all extremities; no focal motor deficits Psychiatric A+Ox3, euthymic affect Lymphatic no cervical or axillary lymphadenopathy Discharge Data Allergies Allergy/AdvReac Type Severity Reaction Status Date / Time aspirin Allergy Mild Unverified 04/06/09 02:36 Penicillins Allergy Mild Unverified 04/06/09 02:36 Consultations 09/29/22 23:00 ED Decision to Admit Stat Ordered Studies 09/29/22 20:48 CT angio chest PE protocol Stat 09/30/22 00:44 CT head/brain wo con Stat 09/30/22 00:54 US venous doppler LE BI Stat Hospital Course (1) Bilateral pulmonary embolism: Unprovoked event 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 She was started on coumadin at that time Current bilateral PE is unprovoked Hypercoagulable workup was ordered by admitting physician and appears to have been sent before Ms Khalil got her first dose of lovenox She will remain on therapeutic lovenox, when ready for discharge will need to investigate insurance coverage of NOAC. I did give her a coupon for 30 day supply of Xarelto. But will need to confirm that she has access to her medicines prior to discharge LE u/s negative for DVT, shows left popliteal cyst which I informed patient of She will most likely need life long anticoagulation considering this is her second VTE but this will be deferred to Hematology Remains stable without any significant symptoms and has been ambulating in the room and hallway without any shortness of breath and/or chest pain/palpitation Wants to go home and she will be discharged home this afternoon Started on Xarelto and advised to take the medications regularly Will have appointment with PCP and fabric worker down the line Plan hypothyroidism continue sytnhroid mood disorder continue sertraline Disposition--Likely discharge home tomorrow if CALDWELL has improved Total Time Total Time Spent Total Time Spent (In Minutes): 35 minutes Discharge Plan Discharge Items Patient Disposition: Home - Self-Care Reason For Visit: PE Discharge Diagnosis: Bilateral pulmonary embolism Condition on Discharge: Good Activity: Resume your previous activity Non-emergency contact: Primary Care Provider Call non-emergency contact if: you have any medication questions and your symptoms worsen Follow-up/Referrals: Edy Rivero PA-C [Outside Practitioners] - (Date & Time 10/07/2022 7:00 AM Provider Edy Rivero PA-C Department General Internal Medicine [facility] ) Diet: Regular Addtl Attending Provider Instructions: Please take precautions to avoid falls Take your medications as advised. Start taking your Xarelto with food from this evening. Please keep appointment with your healthcare providers Pending Studies at Discharge: Yes Studies:: Hypercoagulable work-up Stand-Alone Forms: My [facility], Smoking Cessation Medications and DC Order Prescriptions: New Xarelto 15 mg tablet 15 mg PO BID 21 Days Qty: 42 0RF Rx Instructions: must administer with a meal/food Xarelto 20 mg tablet 20 mg PO DAILY Qty: 30 0RF Rx Instructions: must administer with evening meal.After completing 15 mg BID for 21 days Continued levothyroxine [Synthroid] 150 mcg tablet 150 mcg PO DAILY sertraline 50 mg tablet 50 mg PO DAILY Discharge Orders: Discharge Order (Routine); Ordered 10/01/22 Ordered By: [place] Persaud/Other Patient Handouts: Pulmonary Embolism, Anticoagulants Admission Data Admit Date/Time: 09/30/22 00:53 Attending Provider: [place] Pan Admit Provider: Dallas Menchaca Primary Care Provider: PCP,NO Other Providers: Dallas Menchaca ; Shelley Funez Other Interventions: Discharge Summary Assessment (RN) Last Done: 10/01/22 14:54
[2022-10-06 01:31] LABS: Factor 5 Mutation POSITIVE
[2022-10-06 17:07] LABS: Anti Cardiolipin Ab IgG <2.0 GPL-U/mL; Anti Cardiolipin Ab IgM <2.0 MPL-U/mL; Anti-Thrombin III Activity 62 % normal (80-135); B2 Glycoprotein IgG <2.0 U/mL (<20.0); B2 Glycoprotein IgM <2.0 U/mL (<20.0); PTT LA Screen 44 sec (<=40); Protein S Functional(Activity) 46 % normal (60-140)
[2022-10-07 08:40] LABS: Lupus Hex Phase (Rflxdonotord) Positive (Negative)
== END 2022-10-01 15:15 | disposition home or self-care (01) | DRG 176 ==
LOC: ED 18:38 → INTOOBSV 09-30 00:53 → SUATTDRO 09-30 00:53 → EDINP 09-30 00:53 → 2N 09-30 09:50